=== PATIENT | male | born 1960 | race Caucasian/White ===

== ENCOUNTER 2024-11-16 19:37 | Emergency (ER) | payer MEDICARE, OTHER ==
[2024-11-16] MEDS: Sodium Chloride 0.9% 10 ML Syringe FLUSH PRN (20:16)
[2024-11-16] MEDS: diphenhydrAMINE 50 MG/ML SDV IVPUSH ONE (20:16)
[2024-11-16] MEDS: methylPREDNISolone Sodium Succinate 125 MG/2 ML SDV IVPUSH ONE (20:19)
[2024-11-16] MEDS: Famotidine 20 MG/2 ML SDV IVPUSH ONE (20:26)
== END 2024-11-16 21:50 | disposition home or self-care (01) ==
LOC: JP.ED 19:37
DX: T78.40XA Allergy, unspecified, initial encounter (principal); Z87.891 Personal history of nicotine dependence; Z88.0 Allergy status to penicillin; Z79.899 Other long term (current) drug therapy
CPT/HCPCS: 70360; 96374; 96375; 99283; J1200; J2919

== ENCOUNTER 2025-02-23 10:54 | Emergency (ER) | payer MEDICARE ==
[2025-02-23] MEDS: methylPREDNISolone Sodium Succinate 125 MG/2 ML SDV IVPUSH ONE (11:24)
[2025-02-23] MEDS: Sodium Chloride 0.9% 1,000 ML IV SCH (11:24)
== END 2025-02-23 13:18 | disposition home or self-care (01) ==
LOC: JP.ED 10:54
DX: T78.40XA Allergy, unspecified, initial encounter (principal); Z88.0 Allergy status to penicillin; Z79.82 Long term (current) use of aspirin; Z79.899 Other long term (current) drug therapy; Z79.84 Long term (current) use of oral hypoglycemic drugs
CPT/HCPCS: 87651; 96361; 96374; 99284; J2919; J7030